=== PATIENT | male | born 1980 | race Two or more races ===

== ENCOUNTER 2019-01-30 06:12 | Day surgery (SDC) | payer OTHER ==
[~2019-01-30] VITALS: Ht 160 cm; Wt 63.5 kg
[2019-01-30] VITALS (12 sets, daily range): BP systolic 82–108; BP diastolic 49–75
[~2019-01-30 06:12] MED LIST: NKM; ceFAZolin 1gm IVPB IVPB ONE; celeBREX 200mg Cap **SURGERY PATIENTS ONLY ORAL ONE; oxyCONTIN 20mg tab ORAL ONE
--- NOTE | 2019-01-30 07:18 | Operative Note - PDOC ---
Operative Note Operative Note Pre-op Diagnosis: right knee acl tear Procedure: see op report Post-op Diagnosis: same as pre-op plus Operative Findings: consistent w/pre-op dx studies Anesthesia: general Specimen: none Complications: none Condition: stable Estimated Blood Loss: none Implant(s) used?: No Jose Elias Dunbar MD Jan 30, 2019 07:18
--- NOTE | 2019-01-30 07:18 | Pre-Procedure Note/Attestation ---
Pre-Procedure Note/Attestation Complete Prior to Procedure Planned Procedure: right Procedure Narrative: knee diagnostic arthroscopy, possible acl recontruction, possible synovectomy Indications for Procedure Pre-Operative Diagnosis: right knee acl tear Attestation I attest that I discussed the nature of the procedure; its benefits; risks and complications; and alternatives (and the risks and benefits of such alternatives ), prior to the procedure, with the patient (or the patient's legal physician relations representative). I attest that, if there was a reasonable possibility of needing a blood transfusion, the patient (or the patient's legal physician relations representative) was given the [facility] standardized written summary, pursuant to the [place] Blood Safety Act ([place] Health and Safety Code # 1645, as amended). I attest that I re-evaluated the patient just prior to the surgery and that there has been no change in the patient's H&P, except as documented below: Jose Elias Dunbar MD Jan 30, 2019 07:18
--- NOTE | 2019-01-30 07:33 | Anethesia Preoperative Eval ---
Anesthesia Pre-op PMH/ROS General Date of Evaluation: Jan 30, 2019 Anesthesiologist: Marc ASA Score: ASA 2 Mallampati Score Class I : Soft palate, uvula, fauces, pillars visible Class II: Soft palate, uvula, fauces visible Class III: Soft palate, base of uvula visible Class IV: Only hard plate visible Mallampati Classification: Class II Surgeon: Manjinder Diagnosis: Right knee internal deerangement Surgical Procedure: Right knee arthrosscopy with possible ACL Anesthesia History: none Family History: no anesthesia problems Allergies: Coded Allergies: No Known Allergies (Unverified , 01/30/19) Medications: see eMAR Patient NPO?: Yes NPO Date: Jan 29, 2019 NPO Time: 22:00 Past Medical History Cardiovascular: Denies: HTN, CAD, OR, valve dz, arrhythmia, other Pulmonary: Denies: asthma, COPD, SERGIO, other Gastrointestinal/Genitourinary: Denies: GERD, CRI, ESRD, other Neurologic/Psychiatric: Reports: depression/anxiety; Denies: dementia, CVA, TIA, other Endocrine: Denies: DM, hypothyroidism, steroids, other HEENT: Denies: cataract (L), cataract (R), glaucoma, [place] (L), [place] (R), other Hematology/Immune: Denies: anemia, DVT, bleeding disorder, other Musculoskeletal/Integumentary: Denies: OA, RA, DJD, DDD, edema, other PSxH Narrative: vasesctomy Anesthesia Pre-op Phys. Exam Physician Exam Last Vital Signs Date Time Temp Pulse Resp B/P (MAP) Pulse Ox O2 Delivery O2 Flow Rate FiO2 01/30/19 06:53 97.8 50 18 103/75 100 Room Air Constitutional: NAD Cardiovascular: RRR Respiratory: CTA Airway Exam Mallampati Score: Class II MO: full ROM: full Anesthesia Pre-op A/P Labs see chart Studies Pre-op Studies: EKG Risk Assessment & Plan Assessment: ASA II Plan: GA Status Change Before Surgery: No Pre-Antibiotics Drug: Ancef 1g Given Within 1 Hr of Incision: Yes Dayan Dickens MD Jan 30, 2019 07:33
[2019-01-30] MEDS ORDERED: Ketorolac 30mg Inj ONE ×2 (08:13→08:22)
[2019-01-30] MEDS ORDERED: EPINEPHrine 1mg/1ml Amp ONE (08:13)
[2019-01-30] MEDS ORDERED: Kenalog-40 1ml Vial ONE (08:13)
[2019-01-30] MEDS ORDERED: Bupivacaine 0.25% Inj 30ml INJ ONE (08:13)
[2019-01-30] MEDS ORDERED: Duramorph PF 5mg/10ml amp ONE (08:13)
[2019-01-30] MEDS ORDERED: Lidocaine 1% 10mg/ml/Epi 0.005mg/ml 30ml vial INJ ONE (08:14)
[2019-01-30] MEDS ORDERED: Lidocaine 1% MPF 10mg/ml 5ml ONE (08:20)
[2019-01-30] MEDS ORDERED: Propofol 200mg/20ml IV ONE (08:20)
[2019-01-30] MEDS ORDERED: fentaNYL 100 mcg/2 mL IV ONE (08:20)
[2019-01-30] MEDS ORDERED: Midazolam 2mg/2ml Inj ONE (08:20)
[2019-01-30] MEDS ORDERED: LR 1000ml 1,000 ML IVLG SCH (08:27)
[2019-01-30] MEDS ORDERED: Ketorolac 30mg Inj IV PRN (08:30)
[2019-01-30] MEDS ORDERED: DiphenhydrAMINE 50mg/ml Inj IVP PRN (08:30)
[2019-01-30] MEDS ORDERED: Metoclopramide 10mg/2ml Inj IVP PRN ×2 (08:30→09:15)
[2019-01-30] MEDS ORDERED: Midazolam 2mg/2ml Inj IVP PRN (08:30)
[2019-01-30] MEDS ORDERED: fentaNYL 100 mcg/2 mL IV PRN (08:30)
[2019-01-30] MEDS ORDERED: LORazepam Inj 2mg/ml 1ml IV PRN (08:30)
[2019-01-30] MEDS ORDERED: Hydromorphone 0.5mg/0.5ml inj IVP PRN (08:30)
[2019-01-30] MEDS ORDERED: NS Irrig 4000ml IRRIG ONE (08:58)
--- NOTE | 2019-01-30 09:24 | 48 Hour Post Anesthesia Eval ---
Post Anesthesia Evaluation Procedure: Right knee arthrosocpy Date of Evaluation: Jan 30, 2019 Airway: patent Nausea: No Vomiting: No Pain Intensity: 0 Hydration Status: adequate Cardiopulmonary Status: at baseline Mental Status/LOC: patient returned to baseline Post-Anesthesia Complications: 0 Follow-up care needed: ready to discharge Dayan Dickens MD Jan 30, 2019 09:24
--- NOTE | 2019-01-30 09:24 | Immediate Post-Op Evaluation ---
Immediate Post-Op Evalulation Immediate Post-Op Evalulation Procedure: Right knee arthrosocpy Date of Evaluation: Jan 30, 2019 Time of Evaluation: 09:25 IV Fluids: 500 Blood Products: 0 Estimated Blood Loss: min Urinary Output: 0 Blood Pressure Systolic: 83 Blood Pressure Diastolic: 50 Pulse Rate: 66 Respiratory Rate: 16 O2 Sat by Pulse Oximetry: 100 Temperature (Fahrenheit): 97 Pain Score (1-10): 0 Nausea: No Vomiting: No Complications 0 Patient Status: awake, reacts, patent, none Hydration Status: adequate Drug: Ancef 1g Given Within 1 Hr of Incision: Yes Dayan Dickens MD Jan 30, 2019 09:24
[2019-01-30] MEDS ORDERED: HYDROcodone/Acetamin 5/325 tab ORAL PRN (16:31)
[2019-01-30] MEDS ORDERED: HYDROmorphone 1mg/ml Carpuject SUBQ PRN (16:31)
[2019-01-30] MEDS ORDERED: Tylenol #3 tab (300mg/30mg) ORAL PRN (16:31)
[2019-01-30] MEDS ORDERED: D5 1/2NS 1,000 ML IV SCH (16:31)
--- NOTE | 2019-01-30 19:00 | Operative Note - Dictated ---
DATE OF OPERATION: 01/30/2019 PREOPERATIVE DIAGNOSIS: Right knee ACL tear. POSTOPERATIVE DIAGNOSES: 1. Right knee partial ACL tear. 2. Cyclops lesion intercondylar notch. 3. Intrameniscal degeneration, middle body medial meniscus. PROCEDURES: 1. Right knee diagnostic arthroscopy. 2. Synovectomy, medial and lateral patellofemoral compartment. SURGEON: Jose Elias Dunbar M.D. ANESTHESIA: General. INDICATION FOR PROCEDURE: The patient is a pleasant gentleman, who had an injury to the right knee. He had MRI, which showed a partial tear of the ACL. He continued to have pain in the knee. The patient elected to undergo diagnostic arthroscopy, possible ACL reconstruction. Risks, limitations, expectations complications of procedure were discussed in detail. All questions addressed. DESCRIPTION OF PROCEDURE: After informed consent was obtained, the patient was brought to the operating room. The patient was placed under general anesthesia. The right leg was prepped and draped in a sterile manner. Time-out was performed. Ancef was administered. Examination under anesthesia showed a slight laxity with Evonne's testing with a firm end point. There was negative reverse pivot shift. Once this was done, the inferolateral stab incision was then made. Trocar was introduced into the knee joint. There was hypertrophic synovial tissue in the retropatellar space area but no chondral damage. Medial compartment was entered. There was some hypertrophic synovial tissue anteriorly. Medial compartment was entered. There was some degeneration of the posterior horn of the medial meniscus but no obvious tear. At this point, the meniscus probe noted to be intact. The synovial tissue and fat pad anteriorly was debrided to visualize the anterior horn of the meniscus. There was some fraying along the anterior horn but it was relatively intact. At this point, attention turned towards intercondylar notch. Diagnostic arthroscopy showed that there appeared to be a cyclops lesion with hypertrophic ligamentum mucosa which was causing impingement in extension. Therefore shaver was then placed and ligamentum mucosa, fat pad, and synovial tissue were all excised. Once this was done, intercondylar notch was completely free and when taken through range of motion there was no further impingement. The ACL was probed. There was a longitudinal split at the tibial insertion, noted to be intact. It is felt that formal ACL reconstruction would not be necessary. The lateral compartment entered, free from the meniscal chondral damage. The camera was then positioned in the patellofemoral compartment. Excision of the fat pad and synovial tissue was completed. The instruments were removed. Portal sites were closed using 3-0 Monocryl sutures. Steri-Strips and a sterile dressing were applied. The patient awoken and taken to recovery room with stable vital signs. ESTIMATED BLOOD LOSS: None. COMPLICATIONS: None. SPECIMENS: None. IMPLANTS: None. Jose Elias Dunbar M.D. DR: Daija JOB#: [id number] CC:
== END 2019-01-30 12:30 | disposition home or self-care (01) ==
LOC: SUR 06:12
DX: S83.511A Sprain of anterior cruciate ligament of right knee, initial encounter (principal); M67.261 Synovial hypertrophy, not elsewhere classified, right lower leg; X58.XXXA Exposure to other specified factors, initial encounter; Y92.9 Unspecified place or not applicable; F41.9 Anxiety disorder, unspecified; F32.9 Major depressive disorder, single episode, unspecified
CPT/HCPCS: 29876; J0171; J0690; J1885; J2250; J2405; J2704; J3010; J3301; J3490; 94003; 94150